=== PATIENT | female | born 1995 | race Caucasian/White ===

== ENCOUNTER 2018-10-24 00:30 | Emergency (ER) | payer MEDICAID, OTHER ==
[~2018-10-24] VITALS: Ht 180.3 cm; Wt 129.2 kg
[2018-10-24 00:35] VITALS: BP 147/87
[2018-10-24] MEDS ORDERED: ibuprofen tablet 400 MG TABLET PO ONE (00:50)
[2018-10-27] MEDS ORDERED: AMOX500C2 PO (04:12)
== END 2018-10-24 02:13 | disposition home or self-care (01) ==
LOC: ER 00:30
DX: B34.9 Viral infection, unspecified (principal); Z90.89 Acquired absence of other organs
CPT/HCPCS: 87081; 87880; 99283